=== PATIENT | male | born 1960 | race Caucasian/White ===

== ENCOUNTER → 2021-03-10 | Emergency (ER) | payer SELFPAY ==
[~2021-03-10] VITALS: Ht 182.9 cm; Wt 63.6 kg
--- NOTE | 2021-03-10 10:14 | NUR ---
PT BIB EMS. PT WAS FOUND UNRESPONSIVE AND 911 WAS ACTIVATED. PT STATED TO EMS HE USES [facility] AND HAS NOT USED SINCE YESTERDAY. PIV BY EMS PRIMARY CLINICIAN 18 GA RFA. PT C/O ABD, ALL OVER AND DIARRHEA RECENTLY. PT RESTLESS WITH CONSTANT SHAKING AND MOVING OF HIS LOWER EXTS
[2021-03-10 10:42] LABS: AMPHETAMINE SCREEN, URINE Positive (Negative); BARBITURATE SCREEN, URINE Negative (Negative); BENZODIAZEPINE SCREEN, URINE Negative (Negative); CANNABINOID SCREEN, URINE Positive (Negative); COCAINE SCREEN, URINE Negative (Negative); METHADONE SCREEN, URINE Negative (Negative); OPIATE SCREEN, URINE Positive (Negative)
--- NOTE | 2021-03-10 10:44 | NUR ---
PT REQUESTING TO LEAVE HE WANTS [facility] AND HE IS FEELING ANXIOUS IN THE HOSPITAL. PT ADVISED OF CONSEQUENCES OF LEAVING WITHOUT BEING FURTHER ASSESSED OR TREATED. PT STILL WANTING TO LEAVE AMA AND SIGNED FORM. PIV REMOVED AND PT AMBUALTED TO DC AREA, STEADY GAIT.
== END ==
LOC: EDBD 09:58 → ED 10:10
DX: F11.10 Opioid abuse, uncomplicated (principal); F41.9 Anxiety disorder, unspecified; R10.84 Generalized abdominal pain
CPT/HCPCS: 80307; 93005; 99283; 99284